=== PATIENT | male | born 1945 | race Caucasian/White ===

== ENCOUNTER 2016-10-10 14:29 | Emergency (ER) | payer MEDICARE ==
[2016-10-10] MEDS ORDERED: MELOXICAM 7.5 MG TABLET PO STA (14:45)
== END 2016-10-10 16:31 | disposition home or self-care (01) ==
DX: M79.662 Pain in left lower leg (principal); M25.462 Effusion, left knee; I10 Essential (primary) hypertension; E11.9 Type 2 diabetes mellitus without complications; Z79.84 Long term (current) use of oral hypoglycemic drugs
CPT/HCPCS: 36415; 73564; 80053; 83036; 83690; 85025; 93971; 99282; 99284; A9270

== ENCOUNTER 2016-12-26 07:56 | Day surgery (SDC) | payer MEDICARE ==
[2016-12-26] MEDS ORDERED: LACTATED RINGERS 1,000 ML IV ONE ×2 (08:32→10:35)
[2016-12-26] MEDS ORDERED: MIDAZOLAM 2 MG/2 ML VIAL IVP ONE (10:00)
[2016-12-26] MEDS ORDERED: fentaNYL 100 MCG/2 ML VIAL IVP ONE (10:00)
[2016-12-26 11:23] VITALS: BP 139/72
== END 2016-12-26 07:57 | disposition home or self-care (01) ==
LOC: SDS 07:56
PROVIDERS: ATTEND Surgery
PROC: 0DBL8ZZ Excision of Transverse Colon, Via Natural or Artificial Opening Endoscopic (ICD-10-PCS; 2016-12-26)
PROC: 0DBG8ZZ Excision of Left Large Intestine, Via Natural or Artificial Opening Endoscopic (ICD-10-PCS; principal; 2016-12-26 09:00)
DX: Z12.11 Encounter for screening for malignant neoplasm of colon (principal); D12.3 Benign neoplasm of transverse colon; K62.0 Anal polyp; K64.8 Other hemorrhoids; I10 Essential (primary) hypertension; E11.9 Type 2 diabetes mellitus without complications
CPT/HCPCS: 45380; J7120; 88305

== ENCOUNTER 2017-05-08 08:12 | Outpatient (CLI) | payer MEDICARE ==
[2017-05-08 12:17] LABS: ALBUMIN/GLOBULIN RATIO 1.6 (1.0-2.2); BILIRUBIN,TOTAL 0.6 mg/dL (0.2-1.0); BUN - BLOOD UREA NITROGEN 12 mg/dL (6-20); CALCIUM 9.2 mg/dL (8.5-10.3); CARBON DIOXIDE - CO2 25 mmol/L (21-32); CHLORIDE 100 mmol/L (101-111); CHOL/HDL RATIO 2.9 (<5.0); CHOLESTEROL 152 mg/dL; CREATININE 0.8 mg/dL (0.6-1.2); GFR - MDRD 95 (>89); GLUCOSE 130 mg/dL (70-100); HDL CHOLESTEROL 52 mg/dL; LDL/HDL RATIO 1.6 (<3.6); SODIUM 135 mmol/L (135-145); TOTAL PROTEIN 7.2 g/dL (6.7-8.2); TRIGLYCERIDES 95 mg/dL; VLDL CHOLESTEROL 19 mg/dL
[2017-05-08 12:48] LABS: HEMOGLOBIN A1C 0.73 g/dL
== END 2017-05-08 08:13 | disposition home or self-care (01) ==
LOC: LAB.F 08:12
PROVIDERS: ATTEND Family Medicine
DX: E11.9 Type 2 diabetes mellitus without complications (principal); I10 Essential (primary) hypertension; E78.5 Hyperlipidemia, unspecified
CPT/HCPCS: 36415; 80053; 80061; 83036

== ENCOUNTER 2020-10-09 13:03 | Outpatient (CLI) | payer MEDICARE ==
--- NOTE | 2020-10-09 16:23 | XRAY Report ---
PROCEDURE: Hip w/Pelvis 1V LT INDICATIONS: PAIN IN LEFT HIP JOINT TECHNIQUE: AP pelvis with lateral view(s) of the left hip(s). COMPARISON: None. FINDINGS: Bones: No fractures or dislocations. Pelvic ring appears intact. No suspicious bony lesions. Mode rate bilateral degenerative hip joint space narrowing with particular osteophytes. No erosions. 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 Soft tissues: The visualized bowel gas pattern is normal. No suspicious soft tissue calcifications. IMPRESSION: Bilateral arthritis as above. Reviewed by: Chayo Prescott MD on 10/09/2020 4:22 PM PDT Approved by: Chayo Prescott MD on 10/09/2020 4:22 PM PDT Station ID: [id number]
== END 2020-10-09 13:04 | disposition home or self-care (01) ==
LOC: DI.S 13:03
PROVIDERS: ATTEND Family Medicine
DX: M25.552 Pain in left hip (principal); M16.0 Bilateral primary osteoarthritis of hip

== ENCOUNTER 2021-03-08 07:51 | Outpatient (CLI) | payer MEDICARE ==
[2021-03-08 16:35] LABS: CHOL/HDL RATIO 2.8 (<5.0); CHOLESTEROL 124 mg/dL; HDL CHOLESTEROL 44 mg/dL; LDL CHOLESTEROL,CALCULATED 67 mg/dL; LDL/HDL RATIO 1.5 (<3.6); TRIGLYCERIDES 64 mg/dL; VLDL CHOLESTEROL 13 mg/dL
[2021-03-08 20:13] LABS: ESTIMATED AVERAGE GLUCOSE 120 mg/dL (70-100); HEMOGLOBIN A1c% 5.8 % (4.27-6.07)
== END 2021-03-08 07:52 | disposition home or self-care (01) ==
LOC: LAB.S 07:51
PROVIDERS: ATTEND Family Medicine
DX: E78.2 Mixed hyperlipidemia (principal); E11.9 Type 2 diabetes mellitus without complications
CPT/HCPCS: 36415; 80061; 83036; 83721